=== PATIENT | male | born 1985 | race Hispanic/Latino ===

== ENCOUNTER 2025-10-06 09:50 | Outpatient (CLI) | payer BC | END 2025-10-06 09:51 | disposition home or self-care (01) | LOC: CSHSLEEP 09:50 | PROVIDERS: ATTEND Physician Assistant Medical | DX: G47.33 Obstructive sleep apnea (adult) (pediatric) (principal); I51.7 Cardiomegaly; E66.9 Obesity, unspecified; Z68.37 Body mass index [BMI] 37.0-37.9, adult; R06.83 Snoring; I10 Essential (primary) hypertension | CPT/HCPCS: 95811 ==